=== PATIENT | female | born 1995 | race Two or more races ===

== ENCOUNTER 2018-02-21 11:39 | Emergency (ER) | payer OTHER ==
[2018-02-21] MEDS ORDERED: HYDROCODONE/ACETAMINOPHEN 5-325 MG TABLET PO ONE (12:06)
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
[2018-02-21 13:53] VITALS: BP 117/67
--- NOTE | 2018-02-21 18:15 | EKG REPORT ---
SEVERITY:- BORDERLINE ECG - SINUS RHYTHM BORDERLINE T ABNORMALITIES, INFERIOR LEADS : Confirmed by: Jaycee Morgan MD 21-Feb-2018 18:14:05
== END 2018-02-21 14:14 | disposition home or self-care (01) ==
LOC: ER 11:39
DX: M54.2 Cervicalgia (principal); V89.2XXA Person injured in unspecified motor-vehicle accident, traffic, initial encounter
CPT/HCPCS: 71046; 72125; 81025; 93005; 93010; 99284